=== PATIENT | male | born 2000 | race Hispanic/Latino ===

== ENCOUNTER 2020-10-29 12:59 | Emergency (ER) | payer OTHER ==
[2020-10-29] MEDS ORDERED: Boostrix 0.5 ML (Tdap) VIAL ONE (14:06)
[2020-10-29] MEDS ORDERED: Lidocaine 1% (PF) 30 ML VIAL ONE (14:17)
[2020-10-29] MEDS ORDERED: Bacitracin 1 PK ONE (14:59)
== END 2020-10-29 15:07 | disposition home or self-care (01) ==
LOC: ERS 12:59
DX: S61.219A Laceration without foreign body of unspecified finger without damage to nail, initial encounter (principal); Z23 Encounter for immunization; W26.0XXA Contact with knife, initial encounter
CPT/HCPCS: 12001; 90471; 90715; J2001